=== PATIENT | male | born 1940 | race Caucasian/White ===

== ENCOUNTER → 2016-08-05 | Outpatient (CLI) | payer MEDICARE ==
[~2016-08-05] MED LIST: /GLYB5TA; AMLO10TA; BABY81CH; CIPR500T19; GLUC500T; K-TA10TA; LASI80TA; LISI10TA4; LOPR100T; PERC5TAB8; PRAV40TA; PROM50TA; ZETI10TA
--- NOTE | 2016-08-05 11:40 | REP ---
REASON FOR EXAM: Pain. COMPARISON: None. There is mild asymmetric Intradigital joint space narrowing without marginal erosions or vanessa marginal osteophyte formation. There is evidence of mild periarticular osteopenia. There is no evidence of an acute fracture. There is diffuse swelling of the soft tissues. IMPRESSION: 1. Chronic osseous changes, as described above, which need to be correlated clinically. 2. Diffuse soft tissue swelling, which also needs clinical correlation. Signed by Nabeel Hager DO 08/05/2016 03:58 P
[2016-08-05 13:48] LABS: BASO % 0.2 % (0.0-1.0); EOS # 0.1 K/mm3 (0.0-0.50); EOS % 0.8 % (0.0-3.0); LARGE UNSTAINED CELL # 0.1 K/mm3 (0.0-0.4); LARGE UNSTAINED CELL % 0.8 % (0.0-4.0); LYMPH # 2.5 K/mm3 (1.5-4.5); LYMPH % 14.4 % (24.0-44.0); MEAN CORPUSCULAR HEMOGLOBIN 28.3 pg (27.0-33.0); MEAN CORPUSCULAR HGB CONC 32.5 g/dl (32.0-36.5); MONO # 1.1 K/mm3 (0.0-0.8); MONO % 6.8 % (0.0-5.0); NEUTROPHILS # 12.5 K/mm3 (1.8-7.7); NEUTROPHILS % 77.1 % (36.0-66.0); PLATELET COUNT, AUTOMATED 487 k/mm3 (150-450); RED CELL DISTRIBUTION WIDTH 15.3 % (11.5-14.5); WHITE BLOOD COUNT 16.3 K/mm3 (4.0-10.0)
[2016-08-05 14:10] LABS: ALBUMIN 3.5 GM/DL (3.2-5.2); ALBUMIN/GLOBULIN RATIO 0.97 (1.00-1.93); BILIRUBIN,TOTAL 0.4 MG/DL (0.2-1.0); CALCIUM LEVEL 9.8 MG/DL (8.8-10.2); CREATININE FOR GFR 2.1 MG/DL (0.70-1.30); GLOMERULAR FILTRATION RATE 32.8 (>42); TOTAL PROTEIN 7.1 GM/DL (6.4-8.2); URIC ACID 8.9 MG/DL (3.5-7.2)
[2016-08-05 14:25] LABS: POTASSIUM SERUM 5.3 MEQ/L (3.5-5.1)
== END ==
LOC: M WUC 09:21
PROVIDERS: ATTEND Physician Assistant
DX: M79.642 Pain in left hand (principal); N18.9 Chronic kidney disease, unspecified

== ENCOUNTER → 2016-08-21 | Outpatient (CLI) | payer MEDICARE ==
[2016-08-21 13:09] LABS: MEAN CORPUSCULAR HEMOGLOBIN 27.9 pg (27.0-33.0); MEAN CORPUSCULAR HGB CONC 31.2 g/dl (32.0-36.5); MEAN CORPUSCULAR VOLUME 89.2 fl (80.0-96.0); RED CELL DISTRIBUTION WIDTH 14.9 % (11.5-14.5); WHITE BLOOD COUNT 12.4 K/mm3 (4.0-10.0)
[2016-08-21 13:36] LABS: ALBUMIN 3.5 GM/DL (3.2-5.2); CALCIUM LEVEL 9.3 MG/DL (8.8-10.2); CREATININE FOR GFR 1.9 MG/DL (0.70-1.30); GLOMERULAR FILTRATION RATE 36.8 (>42); PHOSPHORUS LEVEL 3.5 MG/DL (2.5-4.9); URIC ACID 9.2 MG/DL (3.5-7.2)
[2016-08-21 13:37] LABS: POTASSIUM SERUM 5.4 MEQ/L (3.5-5.1)
[2016-08-21 13:46] LABS: BANDS 1 % (< 11); BASOPHILS 1 % (0-4); EOSINOPHILS 1 % (0-5)
[2016-08-21 13:47] LABS: ANISOCYTOSIS 1+
== END ==
LOC: M WUC 09:01
PROVIDERS: ATTEND Physician Assistant
DX: M10.042 Idiopathic gout, left hand (principal)